=== PATIENT | female | born 1970 | race Caucasian/White ===

== ENCOUNTER 2022-07-10 23:22 | Emergency (ER) | payer OTHER ==
[2022-07-10 23:35] VITALS: BP 145/85; PULSE 72; RESP 18; TEMP 98; BMI 25.0
[2022-07-11] MEDS ORDERED: ONDANSETRON 4 MG TABLET PO ONE (00:40)
[2022-07-11] MEDS ORDERED: ONDANSETRON *ODT* 4 MG TABLET ONE (00:43)
== END 2022-07-11 00:49 | disposition home or self-care (01) ==
LOC: JER 23:22
DX: K08.89 Other specified disorders of teeth and supporting structures (principal)
CPT/HCPCS: 99283-25